=== PATIENT | female | born 2000 | race African-American/Black ===

== ENCOUNTER 2023-01-07 13:34 | Emergency (ER) | payer MEDICAID, OTHER ==
[~2023-01-07] VITALS: Ht 167.6 cm; Wt 70.0 kg
[2023-01-07] MEDS ORDERED: DIPHENHYDRAMINE 50MG/ML VIAL IV ONE (14:30)
[2023-01-07] MEDS ORDERED: LORAZEPAM 2MG/ML CPJ IV ONE (14:30)
[2023-01-07 14:34] LABS: BASOPHILS % 0.4 % (0.0-2.0); EOSINOPHILS % 0.2 % (0.0-5.0); HEMATOCRIT. 42.8 % (36.0-48.0); HEMOGLOBIN. 14.2 g/dL (12.0-16.0); LYMPHOCYTES % 10.1 % (20.0-50.0); MEAN CORPUSCULAR HEMOGLOBIN 27.5 pg (28.0-32.0); MEAN PLATELET VOLUME 8.2 fl (7.4-10.4); MONOCYTES % 5.3 % (2.0-8.0); PLATELET 349 x1000/uL (130-400); RED BLOOD CELL COUNT 5.16 mill/uL (4.2-5.4); RED CELL DISTRIBUTION WIDTH 13.6 % (11.6-14.6)
[2023-01-07 14:43] LABS: CHLORIDE 112 mEq/L (98-107)
[2023-01-07] MEDS ORDERED: HALOPERIDOL LACTATE 5MG/ML VIAL IM ONE (14:45)
[2023-01-07 14:49] LABS: ETHANOL BLOOD 173 mg/dL
[2023-01-07 15:21] LABS: HCG SCREEN NEGATIVE
[2023-01-07] MEDS ORDERED: IBUPROFEN 600MG TABLET PO NR (20:27)
[2023-01-07] MEDS ORDERED: ACETAMINOPHEN 325MG TABLET PO NR (20:28)
[2023-01-07 20:35] LABS: *AMPHETAMINES SCREEN URINE NEGATIVE (NEGATIVE); *BARBITURATES SCREEN URINE NEGATIVE (NEGATIVE); *COCAINE SCREEN URINE NEGATIVE (NEGATIVE); METHADONE URINE SCREEN NEGATIVE (NEGATIVE); OPIATES URINE SCREEN NEGATIVE (NEGATIVE); PHENCYCLIDINE URINE SCREEN NEGATIVE (NEGATIVE)
[2023-01-07 20:41] LABS: *BENZODIAZEPINES SCREEN URINE PRESUMTIVE POSITIVE (NEGATIVE); CANNABINOID URINE SCREEN PRESUMTIVE POSITIVE (NEGATIVE)
[2023-01-07] MEDS ORDERED: IBUP-2028 MT (20:53)
[2023-01-07 22:18] VITALS: BP 115/69
== END 2023-01-07 22:20 | disposition home or self-care (01) ==
LOC: ER 13:39
DX: F10.129 Alcohol abuse with intoxication, unspecified (principal); R45.1 Restlessness and agitation; Z79.899 Other long term (current) drug therapy; Y90.6 Blood alcohol level of 120-199 mg/100 ml
CPT/HCPCS: 36415; 80048; 80305; 80307; 80320; 80329; 84703; 85025; 96372; 96374; 96375; 99291; J1200; J1630; J2060; Z7610; G0480